=== PATIENT | female | born 1955 | race Caucasian/White ===

== ENCOUNTER 2022-07-01 15:08 | Inpatient (IN) | payer MEDICARE, BC ==
[2022-07-01] MEDS ORDERED: Sodium Chloride 0.9% 1,000 ML IV SCH (15:30)
[2022-07-01 16:52] LABS: ESTIMATED GFR 54 mL/min (>60)
[2022-07-01] MEDS ORDERED: Iopamidol 755 Mg/ML 100 ML Bottle IVPUSH ONE (18:10)
[2022-07-01] MEDS ORDERED: Sodium Chloride 0.9% 10 ML Syringe FLUSH ONE (18:15)
[2022-07-01] MEDS ORDERED: Ondansetron 4 MG/2 ML SDV IV PRN (19:59)
[2022-07-01] MEDS ORDERED: NS + KCl 20mEq/L 1,000 ML IV SCH (20:15)
[2022-07-01] MEDS: cefTRIAXone 2 GM in Sodium Chloride 0.9% 100 ML IV SCH (22:15)
[2022-07-01] MEDS: Acetaminophen 325 MG Tab PO PRN (22:16)
[2022-07-02] MEDS ORDERED: Potassium Chloride 20 MEQ in Dextrose 5% in Water 1,000 ML IV SCH ×2 (07:00)
[2022-07-02] MEDS ORDERED: methylPREDNISolone Sodium Succinate 125 MG/2 ML SDV IV ONE ×2 (07:42→11:45)
[2022-07-02] MEDS: Potassium Chloride 20 MEQ in Dextrose 5% in Water 1,000 ML IV SCH ×4 (08:37→22:35)
[2022-07-02] MEDS ORDERED: Thiamine 100 MG in Sodium Chloride 0.9% 100 ML IV SCH (09:00)
[2022-07-02] MEDS ORDERED: Enoxaparin 30 MG/0.3 ML Syringe SUBCUT SCH (09:00)
[2022-07-02] MEDS: Acetaminophen 325 MG Tab PO PRN (11:49)
[2022-07-02] MEDS: Iron Polysaccharides Complex 150 MG Cap PO SCH (11:49)
[2022-07-02] MEDS: Thiamine 200 MG/2 ML MDV IV SCH (11:55)
[2022-07-02] MEDS: Enoxaparin 40 MG/0.4 ML Syringe SUBCUT SCH (12:02)
[2022-07-02] MEDS: cefTRIAXone 2 GM in Sodium Chloride 0.9% 100 ML IV SCH (21:33)
[2022-07-03] MEDS: Potassium Chloride 20 MEQ Tab.ER PO SCH ×2 (06:33→17:26)
[2022-07-03] MEDS ORDERED: predniSONE 20 MG Tab PO ONE (09:23)
[2022-07-03] MEDS: Iron Polysaccharides Complex 150 MG Cap PO SCH (10:24)
[2022-07-03] MEDS: Enoxaparin 40 MG/0.4 ML Syringe SUBCUT SCH (10:24)
[2022-07-03] MEDS: Thiamine 200 MG/2 ML MDV IV SCH (12:32)
[2022-07-03] MEDS: Potassium Chloride 20 MEQ in Dextrose 5% in Water 1,000 ML IV SCH ×4 (12:33→23:12)
[2022-07-03] MEDS: cefTRIAXone 2 GM in Sodium Chloride 0.9% 100 ML IV SCH (20:25)
[2022-07-03] MEDS: Cetirizine 10 MG Tab PO SCH (20:25)
[2022-07-04] MEDS: predniSONE 20 MG Tab PO SCH (06:26)
[2022-07-04] MEDS: Cetirizine 10 MG Tab PO SCH ×2 (09:16→20:15)
[2022-07-04] MEDS: Enoxaparin 40 MG/0.4 ML Syringe SUBCUT SCH (09:16)
[2022-07-04] MEDS: Multivitamin Tab PO SCH (09:16)
[2022-07-04] MEDS: Iron Polysaccharides Complex 150 MG Cap PO SCH (09:16)
[2022-07-04] MEDS: Potassium Chloride 20 MEQ in Dextrose 5% in Water 1,000 ML IV SCH ×2 (09:19)
[2022-07-04] MEDS ORDERED: Levothyroxine 88 MCG Tab PO SCH (11:41)
[2022-07-04 13:44] LABS: CORONAVIRUS COVID-19 NAA NEGATIVE (NEGATIVE)
[2022-07-04] MEDS ORDERED: Calcium Carbonate 500 MG Tab.Chew PO PRN (15:50)
[2022-07-04] MEDS: cefTRIAXone 2 GM in Sodium Chloride 0.9% 100 ML IV SCH (20:15)
[2022-07-04] MEDS: Acetaminophen 325 MG Tab PO PRN (20:26)
[2022-07-05] MEDS: predniSONE 20 MG Tab PO SCH (06:15)
[2022-07-05] MEDS: Levothyroxine 88 MCG Tab PO SCH (06:15)
[2022-07-05] MEDS ORDERED: Potassium Chloride 20 MEQ in Dextrose 5% in Water 1,000 ML IV SCH ×6 (08:15→10:15)
[2022-07-05] MEDS ORDERED: Potassium Chloride 20 MEQ Tab.ER PO ONE (08:55)
[2022-07-05] MEDS: Enoxaparin 40 MG/0.4 ML Syringe SUBCUT SCH (10:44)
[2022-07-05] MEDS: Cetirizine 10 MG Tab PO SCH ×2 (10:44→20:43)
[2022-07-05] MEDS: Multivitamin Tab PO SCH (10:44)
[2022-07-05] MEDS: Potassium Chloride 20 MEQ in Dextrose 5% in Water 1,000 ML IV SCH ×4 (10:44→10:45)
[2022-07-05] MEDS: Iron Polysaccharides Complex 150 MG Cap PO SCH (10:44)
[2022-07-05] MEDS: Saccharomyces Boulardii (Probiotic) 250 MG Cap PO SCH (20:43)
[2022-07-05] MEDS: Loperamide 2 MG Cap PO PRN (20:43)
[2022-07-05] MEDS: cefTRIAXone 2 GM in Sodium Chloride 0.9% 100 ML IV SCH (20:44)
[2022-07-06] MEDS: Potassium Chloride 20 MEQ in Dextrose 5% in Water 1,000 ML IV SCH ×4 (00:25→06:32)
[2022-07-06] MEDS: Levothyroxine 88 MCG Tab PO SCH (06:31)
[2022-07-06] MEDS ORDERED: Potassium Chloride 20 MEQ Tab.ER PO ONE (06:37)
[2022-07-06] MEDS: Iron Polysaccharides Complex 150 MG Cap PO SCH (09:10)
[2022-07-06] MEDS: Cetirizine 10 MG Tab PO SCH ×2 (09:10→20:06)
[2022-07-06] MEDS: Enoxaparin 40 MG/0.4 ML Syringe SUBCUT SCH (09:10)
[2022-07-06] MEDS: Saccharomyces Boulardii (Probiotic) 250 MG Cap PO SCH ×2 (09:10→20:06)
[2022-07-06] MEDS: Multivitamin Tab PO SCH (09:10)
[2022-07-06] MEDS: Acetaminophen 325 MG Tab PO PRN (15:27)
[2022-07-06] MEDS: Loperamide 2 MG Cap PO PRN (18:54)
[2022-07-06] MEDS: cefTRIAXone 2 GM in Sodium Chloride 0.9% 100 ML IV SCH (20:07)
[2022-07-07] MEDS: Levothyroxine 88 MCG Tab PO SCH (05:34)
[2022-07-07] MEDS: Acetaminophen 325 MG Tab PO PRN (05:45)
[2022-07-07] MEDS: Loperamide 2 MG Cap PO PRN (05:45)
[2022-07-07] MEDS: Multivitamin Tab PO SCH (08:51)
[2022-07-07] MEDS: Iron Polysaccharides Complex 150 MG Cap PO SCH (08:51)
[2022-07-07] MEDS: Cetirizine 10 MG Tab PO SCH (08:51)
[2022-07-07] MEDS: Saccharomyces Boulardii (Probiotic) 250 MG Cap PO SCH (08:51)
[2022-07-07] MEDS: Enoxaparin 40 MG/0.4 ML Syringe SUBCUT SCH (08:51)
== END 2022-07-07 13:15 | DRG 557 ==
LOC: JD.ED 15:08 → JD.MS 19:36
PROVIDERS: ADMIT Internal Medicine; ATTEND Internal Medicine
DX: M62.82 Rhabdomyolysis (principal); G93.41 Metabolic encephalopathy; N39.0 Urinary tract infection, site not specified; R41.0 Disorientation, unspecified; R47.1 Dysarthria and anarthria; R53.1 Weakness; R94.31 Abnormal electrocardiogram [ECG] [EKG]; E87.0 Hyperosmolality and hypernatremia; E86.0 Dehydration; D50.9 Iron deficiency anemia, unspecified; E03.9 Hypothyroidism, unspecified; E87.6 Hypokalemia; Z20.822 Contact with and (suspected) exposure to COVID-19; H54.7 Unspecified visual loss; M19.90 Unspecified osteoarthritis, unspecified site; M06.9 Rheumatoid arthritis, unspecified; R79.1 Abnormal coagulation profile
CPT/HCPCS: 0241U; 36415; 70450; 70496; 70498; 70551; 71045; 80048; 80053; 80307; 81001; 82009; 82550; 82728; 82947; 83540; 83605; 83735; 83880; 84443; 84484; 85025; 85027; 85610; 85652; 85730; 86140; 92610; 93005; 96361; 96365; 97116; 97162; 97166; 97530; 97535; 99285; 93010; 99239; 99284; A9270-GY; J0696; J1650; J2930; J3411; J3480; J7030; J7060; J7512; Q9967